=== PATIENT | male | born 1975 | race Caucasian/White ===

== ENCOUNTER 2016-07-31 08:59 | Emergency (ER) | payer BC ==
[2016-07-31 09:21] VITALS: BP 121/89
--- NOTE | 2016-07-31 09:56 | UC ---
Dental HPI - HPI Summary HPI Summary: PATIENT PRESENTS WITH BUMP ON THE UPPER LEFT SIDE OF HIS CANINE. HE STATES HE FIRST FELT THE BUMP ON SUNDAY AND HE FEELS IT HAS GROWN SLIGHTLY. HE ENDORSES 8/10 PAIN. DENIES DRAINAGE. ENDORSES ERYTHEMA. HE HAS NEVER HAD A DENTAL INFECTION BEFORE AND DOES NOT HAVE A LOCAL DENTIST. HE HAS HAD PREVIOUS FILLINGS, ETC. DENIES FEVER, CHILLS OR SWEATS. DENIES OTHER PAIN. PATIENT IS A NON-SMOKER. - History of Current Complaint Chief Complaint: UCDentalProblem Stated Complaint: TOOTH ACHE Time Seen by Provider: 07/31/16 09:26 Hx Obtained From: Patient Onset/Duration: Sudden Onset Severity: Moderate Pain Intensity: 8 Pain Scale Used: 0-10 Numeric Aggravating: Chewing Alleviating: Other (see comments) - ICE Related History: Previous Dental Care on Same Tooth, Swelling - Allergies/Home Medications Allergies/Adverse Reactions: Allergies Allergy/AdvReac Type Severity Reaction Status Date / Time No Known Allergies Allergy Verified 07/31/16 09:21 Home Medications: Home Medications Ibuprofen TAB* [Advil TAB*] 1,000 mg PO ONCE PRN 07/31/16 [History Confirmed ] Ibuprofen TAB* [Motrin TAB* 800 MG] 800 mg PO Q2H PRN 07/31/16 [History Confirmed 07/31/16] PMH/Surg Hx/FS Hx/Imm Hx Previously Healthy: Yes - Surgical History Surgical History: None - Family History Known Family History: Positive: Cardiac Disease - Social History Occupation: Employed Full-time Lives: With Family Alcohol Use: Rare Substance Use Type: None Smoking Status (MU): Former Smoker - Immunization History Most Recent Influenza Vaccination: no Review of Systems Constitutional: Negative Skin: Negative Eyes: Negative ENT: Dental Pain Respiratory: Negative Cardiovascular: Negative Motor: Negative Neurovascular: Decreased Sensation Musculoskeletal: Negative Neurological: Negative All Other Systems Reviewed And Are Negative: Yes Physical Exam Triage Information Reviewed: Yes Appearance: Well-Appearing, No Pain Distress, Well-Nourished Vital Signs: Initial Vital Signs Temp 98.2 F 07/31/16 09:15 Pulse 89 07/31/16 09:15 Resp 18 07/31/16 09:15 BP 121/89 07/31/16 09:15 Vital Signs Reviewed: Yes Eye Exam: Normal Eyes: Positive: Conjunctiva Clear ENT Exam: Normal Dental: Positive: Percussion Tenderness @ - LEFT MAXILLARY, Abscess @ - LEFT UPPER CANINE Dental Complaint Course/Dx - Course Course Of Treatment: Patient arrives to ED with CC of pain over right upper canine with small bump to the lateral side, not radiating to the jaw and ear. Denies trismus, drooling or dysphagia. Pain is 8/10, sharp and throbbing. Denies airway compromise or SOB. Denies ear pain, eye pain, blurry vision or double vision. Otherwise healthy. Pain is worse with chewing and cold drinks, better with ibuprofen, but only improves slightly. Patient denies dental care for several years. Small dental seen over area of concern. Erythema at site of pain. No drainage from area. Several dental caries. Pain on palpation over right maxillary. Denies pain over mandible. No TMJ tenderness. No pain with opening and closing mouth. Poor dental hygiene and outpatient dental care. Will treat for possible dental infection/abscess based on symptoms of pain and radiation to jaw and ear. No allergies. Will treat with Penicillin. Patient to follow up immediately with dentist. - Differential Dx/Diagnosis Differential Diagnosis/Dx: Dental Abscess, Dental Caries, Fractured Tooth Provider Diagnoses: Dental Abscess Discharge - Discharge Plan Condition: Stable Disposition: AGAINST MEDICAL ADVICE Prescriptions: Penicillin VK TAB 500 MG(NF) [Penicillin VK 500 mg Tab(NF)] 500 mg PO QID #28 tab oxyCODONE/Acetamin 5/325 MG* [Percocet 5/325 TAB*] 1 tab PO Q4H PRN #6 tab MDD 6 PRN Reason: Pain Patient Education Materials: Dental Abscess (ED) Referrals: No Primary Care Phys,NOPCP [Primary Care Provider] - Additional Instructions: You have been diagnosed with dental pain with possible infection: Antibiotics as prescribed to you. Salt water rinses several times per day will improve healing time. Ibuprofen 600mg three times daily with meals for discomfort. Clove oil over tooth will help with pain. Follow up with a dentist for routine care to prevent recurrence of infections. If fever, worsening pain or swelling develops, see your PCP, dentist or come back to the Emergency Department. Images Dental: 1 - SMALL BUMP LATERAL TO THE CANINE WITH ERYTHEMA
== END 2016-07-31 09:55 | disposition left against medical advice (07) ==
LOC: UCCORT 08:59
DX: K04.7 Periapical abscess without sinus (principal); Z87.891 Personal history of nicotine dependence
CPT/HCPCS: 99212; G0463